=== PATIENT | female | born 1970 | race American Indian/Alaskan Native ===

== ENCOUNTER 2021-04-27 13:07 | Emergency (ER) | payer OTHER, MEDICARE ==
[2021-04-27 13:16] VITALS: BP 133/66
[2021-04-27] MEDS ORDERED: BUTALB/ACETAMINOPHEN/CAFFEINE TAB PO STA (13:58)
[2021-04-27] MEDS ORDERED: IBUPROFEN 800 MG TAB PO STA (13:58)
[2021-04-27] MEDS ORDERED: ONDANSETRON 4 MG ODT TAB PO ONE (13:59)
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
== END 2021-04-27 15:09 | disposition home or self-care (01) ==
LOC: ED 13:07
DX: M54.2 Cervicalgia (principal); R51.9 Headache, unspecified
CPT/HCPCS: 72040; 99283; Q0162